=== PATIENT | female | born 1945 ===

== ENCOUNTER 2024-07-15 07:41 | Day surgery (SDC) | payer MEDICARE, OTHER ==
[~2024-07-15] VITALS: Ht 162.6 cm; Wt 86.3 kg
[~2024-07-15 07:41] MED LIST: ATOR10 PO; CRANBERRY215 MG PO; Cyclobenzaprine5 MG PO; DULOXETINE HCL30 M1 PO; FAMO20 PO; GABA100 PO; Isosorbide Mono30 MG PO; LEVOTHYROXINE112 M19 PO; LOSARTAN-HCTZ1 EAC5 PO; OYSTER SHELL C500 MG PO; PRILOSEC PO
[2024-07-15] MEDS ORDERED: Lactated Ringer's 1,000 ML IV ONE ×2 (08:20→10:26)
[2024-07-15] MEDS ORDERED: propofoL 0 ML IV ONE (08:20)
[2024-07-15] MEDS ORDERED: Prilosec Otc20 MG (09:30)
[2024-07-15] MEDS ORDERED: Vitamin C100 M1 (09:31)
[2024-07-15] MEDS ORDERED: Vitamin D1000 UNI1 (09:31)
[2024-07-15] MEDS ORDERED: PRESERVISION A1 EAC1 (09:32)
[2024-07-15] MEDS ORDERED: FLONASE ALLERG9.9 M2 (09:32)
[2024-07-15] MEDS ORDERED: propofoL 50 ML IV ONE (10:56)
== END 2024-07-15 12:00 | disposition home or self-care (01) ==
LOC: ORSCSDS 07:41
PROVIDERS: Internal Medicine Gastroenterology
PROC: 0DBK8ZX Excision of Ascending Colon, Via Natural or Artificial Opening Endoscopic, Diagnostic (ICD-10-PCS; principal; 2024-07-15 10:00)
PROC: 0DJ08ZZ Inspection of Upper Intestinal Tract, Via Natural or Artificial Opening Endoscopic (ICD-10-PCS; principal; 2024-07-15 10:00)
DX: K21.9 Gastro-esophageal reflux disease without esophagitis (principal); Z12.11 Encounter for screening for malignant neoplasm of colon; Z86.0100 Personal history of colon polyps, unspecified; Z87.891 Personal history of nicotine dependence; D12.2 Benign neoplasm of ascending colon; K57.30 Diverticulosis of large intestine without perforation or abscess without bleeding; G47.33 Obstructive sleep apnea (adult) (pediatric); K44.9 Diaphragmatic hernia without obstruction or gangrene; I10 Essential (primary) hypertension; M79.7 Fibromyalgia; E66.9 Obesity, unspecified; Z68.32 Body mass index [BMI] 32.0-32.9, adult; Z79.899 Other long term (current) drug therapy
CPT/HCPCS: 88305; J2704; J7120